=== PATIENT | female | born 1950 ===

== ENCOUNTER 2017-07-29 09:23 | Observation (INO) | payer SELFPAY ==
[2017-07-29 09:57] LABS: #Basophils 0.2 thou/uL (0.0-0.2); #Eosinphils 0.5 thou/uL (0.0-0.7); #Lymphocytes 2.5 thou/uL (1.20-3.40); #Monocytes 0.4 thou/uL (0.11-0.59); %Basophils 1.8 % (0.0-1.0); %Eosinophils 5.7 % (0.0-10.0); %Lymphocytes 29.6 % (21.0-51.0); %Monocytes 4.9 % (0.0-10.0); Hemoglobin 13.2 g/dL (12.0-16.0); Mean Corpuscular HGB CONC 33.4 g/dL (32.0-36.0); Mean Corpuscular Hemoglobin 31.8 pg (27.0-31.0); Mean Corpuscular Volume 95.3 fl (81.0-99.0); Mean Platelet Volume 8.3 fL (7.4-10.4); Platelet Count 211 thou/uL (130-400); RBC Distribution Width 11.4 % (11.5-14.5); Red Blood Cell (RBC) Count 4.14 mill/uL (4.20-5.40); White Blood Cell (WBC) Count 8.6 thou/uL (4.8-10.8)
[2017-07-29 10:21] LABS: Troponin I Less than 0.010 ng/mL (< 0.028)
[2017-07-29 10:24] LABS: ALT (SGPT) 16 U/L (8-55); AST (SGOT) 14 U/L (5-34); Albumin 4.3 g/dL (3.4-4.8); Alkaline Phosphatase 41 U/L (40-150); Anion Gap 11 mmol/L (10-20); BUN (Urea Nitrogen) 12 mg/dL (9.8-20.1); Bilirubin, Total 0.6 mg/dL (0.2-1.2); CK (CPK) 73 U/L (29-168); Calc. Creatinine Clearance 0 mL/min (70-130); Carbon Dioxide 29 mmol/L (23-31); Chloride 104 mmol/L (98-107); Estimated GFR-MDRD 72; Globulin 2.6 g/dL (2.4-3.5); Glucose 124 mg/dL (80-115); Lipase 22 U/L (8-78); Potassium 3.7 mmol/L (3.5-5.1); Protein, Total 6.9 g/dL (6.0-8.3); Sodium 140 mmol/L (136-145)
--- NOTE | 2017-07-29 10:37 | RAD ---
CHEST ONE VIEW: History: Chest pain Comparison: None FINDINGS: Lungs are clear. No pneumothorax or effusion. Cardiac silhouette and mediastinal contours are within normal limits. No acute osseous abnormality. Dense calcifications of arch of the aorta. IMPRESSION: No acute intrathoracic abnormality. POS: [facility]
--- NOTE | 2017-07-29 12:43 | CT ---
CTA OF THE THORAX UTILIZING IV CONTRAST AND PE PROTOCOL AND 3D REFORMATTED IMAGING: INDICATION: History of shortness of breath and palpitations that started 1 week ago but worsened this morning. FINDINGS: No central or segmental pulmonary embolus is evident. No confluent airspace opacity, pleural effusion, or pneumothorax is evident. There are areas of subsegmental atelectasis within the lingula. There is mild vascular calcification involving the thoracic aorta. No lymphadenopathy is seen within the mediastinal, hilar, or axillary regions. The upper abdomen is unremarkable for acute abnormality. No acute osseous abnormality is evident. There is scattered degenerative and osteoarthritic change. IMPRESSION: No central or segmental pulmonary embolus. POS: [facility]
[2017-07-29] MEDS ORDERED: ISOVUE-370 76%-LOCM 1 ML ONE (12:47)
--- NOTE | 2017-07-29 13:21 | HP ---
PRIMARY CARE PHYSICIAN: [facility] call admission. REASON FOR ADMISSION: Dyspnea on exertion, palpitation on exertion. HISTORY OF PRESENT ILLNESS: A 67-year-old female who is originally from [place]. She is visiting here since she is in [facility]. She is experiencing dyspnea on exertion. Patient reports that she is able to w alk flat without any problem almost 1 hour, but whenever she climbs stairs, then she feels shortness of breath or palpitations. This is going on for about last couple of weeks, but last few days she is getting worse. She denies any lower extremity edema. She denies any orthopnea or PND. She denies any syncope. She denies any chest pain, but she feels shortness of breath. Patient is unable to spe ak in [place]ic, but her daughter who is fluent in [place]ic helped to get history from her. Patient reports that before coming from [place] to [facility], she is on currently visitor visa. She had cardi ac testing done in her home country including cardiac catheterization and echocardiography and report is available to her and that was normal. Patient's daughter reports that lately she used to get more stress and that she is thinking that stre ss has contributed to her current presentation. The patient is taking all her medication. She denies any fever or chills, flu-like illness. She den ies any cough. She denies any UTI symptoms. She denies any constipation, diarrhea, melena or hemato chezia. In the emergency room, patient had CT angiography which was negative for pulmonary embolism and routi ne blood tests including electrocardiogram is unremarkable. At this point, patient's family member w anted to rule out cardiac etiology and that is why we are admitting for observation. ALLERGIES: No known drug allergies. CURRENT HOME MEDICATIONS: Toprol-XL 47.5 mg p.o. daily, metformin 500 mg p.o. daily, losartan 25 mg p.o. daily, Synthroid 100 mcg p.o. daily, Dyrenium 50 mg p.o. daily. REVIEW OF SYSTEMS: The following complete review of systems was negative, unless otherwise mentioned in the HPI or below: Constitutional: Weight loss or gain, ability to conduct usual activities. Skin: Rash, itching. Eyes: Double vision, pain. ENT/Mouth: Nose bleeding, neck stiffness, pain, tenderness. Cardiovascular: Palpitations, dyspnea on exertion, orthopnea. Respiratory: Shortness of breath, wheezing, cough, hemoptysis, fever or night sweats. Gastrointestinal: Poor appetite, abdominal pain, heartburn, nausea, vomiting, constipation, or diarr hea. Genitourinary: Urgency, frequency, dysuria, nocturia. Musculoskeletal: Pain, swelling. Neurologic/Psychiatric: Anxiety, depression. Allergy/Immunologic: Skin rash, bleeding tendency. Please see my HPI for pertinent positive and negative. All other review of systems reviewed and nega tive except as mentioned in the HPI. PAST MEDICAL HISTORY: Diabetes type 2, hypertension, dyslipidemia. PAST SURGICAL HISTORY: x3, thyroidectomy. PAST PSYCHIATRIC HISTORY: Reviewed and negative. SOCIAL HISTORY: Patient is originally from [place]. She lives currently with her daughter. No history of tobacco, alcohol or illicit drug abuse. FAMILY HISTORY: No strong family history of premature coronary artery disease, stroke or cancer. EMERGENCY ROOM COURSE: Reviewed. PHYSICAL EXAMINATION: VITAL SIGNS: On arrival, blood pressure 157/85, pulse 60, respiratory rate 18, temperature 98.6, sat uration 98% on room air, weight 60.7 kilograms. GENERAL: Patient is currently alert, oriented, no acute distress. HEAD: Normocephalic, atraumatic. EYES: Pupils round, reactive to light. Extraocular muscles intact. ENT: Oropharynx within normal limits. Moist mucous membranes. No oral lesions. No pharyngeal eryt usman, no exudates. NECK: Supple, no JVD, no thyromegaly, no carotid bruit, no jugular venous distention. LUNGS: Clear to auscultation without any rhonchi or rales. No accessory muscles of respiration in u se. CARDIAC: S1, S2 regular. No murmur, no gallop, no rub. ABDOMEN: Soft, bowel sounds present, nontender, nondistended. No organomegaly, no mass, no suprapub ic tenderness. BACK: Examination unremarkable, no CVA tenderness. EXTREMITIES: Upper extremity passive movements of all joints are normal. Lower extremity, trace low er extremity edema noted. Good peripheral pulsation, no calf tenderness. SKIN: No skin rash. HEMATOLOGICAL SYSTEM: No lymphadenopathy. PSYCHIATRIC: Normal affect. NEUROLOGIC: Nonfocal examination. The patient moves all 4 limbs. Plantar bilateral flexor. IMAGING DATA SIGNIFICANT LABORATORY DATA: 1. EKG showing sinus rhythm. 2. Chest x-ray based on my review, no acute cardiopulmonary process. 3. CT angio, no evidence of pulmonary embolism. 4. CBC: WBC 8.6, hemoglobin 13.2, platelets 211. Lipase 22, CK 73. 5. BMP: Sodium 140, potassium 3.7, chloride 104, carbon dioxide 29, BUN 12, creatinine 0.80, calciu m 9.0, glucose 124. 6. LFT: Protein 6.9, albumin 4.3, AST 14, ALT 16, and alkaline phosphatase 41. 7. CK-MB 1.0, troponin I is less than 0.010, BNP less than 10, D-dimer 0.169. ASSESSMENT AND PLAN/IMPRESSION: 1. Dyspnea on exertion as well as palpitations on exertion. Currently, EKG is within normal limits. BNP is normal, so unlikely to be congestive heart failure. Her D-dimer is elevated, but CT angio i s negative for PE and dyspnea. Thromboembolic disorder is also ruled out. Considering angina equiva lent, we will keep this patient in the hospital for observation and we will do stress test for diagno stic reason. Meanwhile, we will monitor on telemetry floor. Do serial cardiac enzymes, check lipid profile tomorrow morning for risk stratification and continue aspirin 325 mg p.o. daily. We will hol d on Toprol-XL because of stress test. Patient already had echocardiography done in her home country , which appears to be completely normal with normal ejection fraction. 2. Diabetes type 2. Hold metformin because of CT angio for 48 hours and we will continue insulin as per sliding scale per protocol. Diabetic diet will be given. 3. Hypertension. Continue losartan 25 mg p.o. daily. 4. Hypothyroidism. Continue Synthroid 100 mcg p.o. daily. 5. Deep venous thrombosis prophylaxis not needed because we are expecting discharge in 24 hours. 6. Gastrointestinal prophylaxis, Pepcid 20 mg p.o. b.i.d. 7. Code status: The patient is FULL CODE. Patient's daughter is surrogate decision maker. Disposition plan based on stress test result. Plan of care discussed with the patient and family mem atilio at bedside in the emergency room.
[2017-07-29 13:37] LABS: Troponin I 0.012 ng/mL (< 0.028)
[2017-07-29] MEDS ORDERED: Artificial Tears 18 DROP/0.9 ML EA EYE PRN (14:02)
[2017-07-29] MEDS ORDERED: hydrALAZINE 20 MG/ML VIAL SLOW IVP PRN (14:02)
[2017-07-29] MEDS ORDERED: Dextrose 50% Abboject 50 ML SYRINGE SLOW IVP PRN (14:02)
[2017-07-29] MEDS ORDERED: Ondansetron ODT 4 MG TAB PO PRN (14:02)
[2017-07-29] MEDS ORDERED: Eucerin (Mineral Oil/Petrolatum,White) 30 gm Jar TOP PRN (14:02)
[2017-07-29] MEDS ORDERED: Acetaminophen 325 MG TAB PO PRN (14:02)
[2017-07-29] MEDS ORDERED: Loratadine 10 MG TAB PO PRN (14:02)
[2017-07-29] MEDS ORDERED: Zolpidem Tartrate 5 MG TAB PO PRN (14:02)
[2017-07-29] MEDS ORDERED: Loperamide HCl 2 MG CAP PO PRN (14:02)
[2017-07-29] MEDS ORDERED: Milk Of Magnesia 30 ML UDCUP PO PRN (14:02)
[2017-07-29] MEDS ORDERED: Ondansetron HCl/PF 4 MG/2 ML Vial IVP PRN (14:02)
[2017-07-29] MEDS ORDERED: Nitroglycerin 0.4 MG TAB (25 Tab Bottle) SL PRN (14:02)
[2017-07-29] MEDS ORDERED: Mag-Al 1200 mg/1200 mg/30 ML UDCUP PO PRN (14:02)
[2017-07-29] MEDS ORDERED: Sodium Chloride 0.65% Nasal 44 ML BOT EA NARE PRN (14:02)
[2017-07-29] MEDS ORDERED: Diabetic Tussin 200 MG/10 ML UDCUP PO PRN (14:02)
[2017-07-29] MEDS ORDERED: Dextrose 5% in Water 1,000 ML IV PRN (14:02)
[2017-07-29] MEDS ORDERED: HYDROcodone/Acetaminophen 5/325 mg Tablet PO PRN (14:02)
[2017-07-29] MEDS ORDERED: HumaLOG 300 UNITS/3 ML VIAL SC PRN ×2 (14:02)
[2017-07-29] MEDS ORDERED: Chloraseptic Spray 180 ml Bottle PO PRN (14:02)
[2017-07-29] MEDS ORDERED: Senokot 8.6 MG TAB PO PRN (14:02)
[2017-07-29 16:48] LABS: Troponin I Less than 0.010 ng/mL (< 0.028)
[2017-07-29] MEDS: Famotidine 20 MG TAB PO SCH (20:40)
[2017-07-30] MEDS: Famotidine 20 MG TAB PO SCH (07:44)
[2017-07-30] MEDS ORDERED: Aspirin 325 MG TAB PO SCH (09:00)
--- NOTE | 2017-07-30 09:57 | PDOC.PN ---
- Subjective Encounter Start Date: 07/30/17 Encounter Start Time: 07:20 -: old records requested/rev Patient seen and examined. No new complaints. No overnight events - Objective Resuscitation Status: Resuscitation Status FULL:Full Resuscitation MAR Reviewed: Yes Vital Signs & Weight: Vital Signs (12 hours) Temp Pulse Resp BP Pulse Ox 07/30/17 07:41 97.6 F 54 L 18 07/30/17 07:40 98.2 F 57 L 16 128/70 97 07/30/17 04:28 97.6 F 54 L 18 134/60 95 Weight Weight 136 lb 6.4 oz I&O: 07/29/17 07/30/17 07/31/17 06:59 06:59 06:59 Intake Total 1230 Output Total 1900 Balance -670 Result Diagrams: 07/29/17 09:45 07/29/17 09:45 Additional Labs: Accuchecks 07/30/17 07/29/17 07/29/17 04:31 20:44 17:29 POC Glucose 116 H 135 H 215 H EKG Reviewed by me: Yes (nsr) Phys Exam - Physical Examination Constitutional: NAD HEENT: PERRLA, moist MMs, sclera anicteric Neck: no JVD, supple Respiratory: no wheezing, no rales, no rhonchi Cardiovascular: RRR, no significant murmur, no rub Gastrointestinal: soft, non-tender, no distention, positive bowel sounds Musculoskeletal: no edema, pulses present Neurological: non-focal, normal sensation, moves all 4 limbs Lymphatic: no nodes Psychiatric: normal affect, A&O x 3 Skin: no rash, normal turgor Dx/Plan (1) RANGEL (dyspnea on exertion) Code(s): R06.09 - OTHER FORMS OF DYSPNEA Status: Acute (2) Palpitation Code(s): R00.2 - PALPITATIONS Status: Acute (3) Diabetes type 2, controlled Code(s): E11.9 - TYPE 2 DIABETES MELLITUS WITHOUT COMPLICATIONS Status: Chronic (4) Dyslipidemia Code(s): E78.5 - HYPERLIPIDEMIA, UNSPECIFIED Status: Chronic (5) Hypothyroidism Code(s): E03.9 - HYPOTHYROIDISM, UNSPECIFIED Status: Chronic - Plan cont current plan of care, plan discussed w/ family * medication reviewed as below * symptomatic treatment * today stress test * if negative, will dc later today * will send all meds to her pharmacy. Review of Systems - Review of Systems Eyes: negative: Pain, Vision Change, Conjunctivae Inflammation, Eyelid Inflammation, Redness, Other ENT: negative: Ear Pain, Ear Discharge, Nose Pain, Nose Discharge, Nose Congestion, Mouth Pain, Mouth Swelling, Throat Pain, Throat Swelling, Other Respiratory: negative: Cough, Dry, Shortness of Breath, Hemoptysis, SOB with Excertion, Pleuritic Pain, Sputum, Wheezing Cardiovascular: negative: chest pain, palpitations, orthopnea, paroxysmal nocturnal dyspnea, edema, light headedness, other Gastrointestinal: negative: Nausea, Vomiting, Abdominal Pain, Diarrhea, Constipation, Melena, Hematochezia, Other Genitourinary: negative: Dysuria, Frequency, Incontinence, Hematuria, Retention , Other Musculoskeletal: negative: Neck Pain, Shoulder Pain, Arm Pain, Back Pain, Hand Pain, Leg Pain, Foot Pain, Other - Medications/Allergies Allergies/Adverse Reactions: Allergies Allergy/AdvReac Type Severity Reaction Status Date / Time No Known Allergies Allergy Unverified 07/29/17 14:02 Medications: Current Medications Acetaminophen (Tylenol) 650 mg PO Q4H PRN PRN Reason: Headache/Fever or Pain Hydrocodone Bitart/Acetaminophen ([place] 5/325) 1 tab PO Q4H PRN PRN Reason: Moderate Pain (4-6) Al Hydroxide/Mg Hydroxide (Maalox) 30 ml PO Q6H PRN PRN Reason: Heartburn or Indigestion Artificial Tears (Tears Naturale) 0 drop EA EYE PRN PRN PRN Reason: Dry Eyes Aspirin (Aspirin) 325 mg PO DAILY [facility] Last Admin: 07/30/17 07:44 Dose: Not Given Dextrose/Water (Dextrose 50%) 25 gm SLOW IVP PRN PRN PRN Reason: Hypoglycemia Famotidine (Pepcid) 20 mg PO BID [facility] Last Admin: 07/30/17 07:44 Dose: Not Given Glucagon (Glucagon) 1 mg IM PRN PRN PRN Reason: Hypoglycemia Guaifenesin (Robitussin Sf) 200 mg PO Q4H PRN PRN Reason: Cough Hydralazine HCl (Apresoline) 10 mg SLOW IVP Q4H PRN PRN Reason: Systolic BP > 180 Dextrose/Water (D5w) 1,000 mls @ 0 mls/hr IV .Q0M PRN; As Directed PRN Reason: Hypoglycemia Insulin Human Lispro (Humalog) 0 units SC .MODERATE SLIDING SC PRN PRN Reason: Moderate Correctional Scale Insulin Human Lispro (Humalog) 0 units SC .BEDTIME SLIDING SC PRN PRN Reason: Bedtime Correctional Scale Loperamide HCl (Imodium) 2 mg PO PRN PRN PRN Reason: Diarrhea/Loose Stools Loratadine (Claritin) 10 mg PO DAILYPRN PRN PRN Reason: Sinus Symptoms Magnesium Hydroxide (Milk Of Magnesium) 30 ml PO DAILYPRN PRN PRN Reason: Constipation Mineral Oil/White Petrolatum (Eucerin Cream) 0 gm TOP BIDPRN PRN PRN Reason: Dry Skin Nitroglycerin (Nitrostat) 0.4 mg SL Q5MIN PRN PRN Reason: Chest Pain Ondansetron HCl (Zofran Odt) 4 mg PO Q6H PRN PRN Reason: Nausea/Vomiting Ondansetron HCl (Zofran) 4 mg IVP Q6H PRN PRN Reason: Nausea/Vomiting Phenol (Chloraseptic [place] 180 Ml Bot) 0 ml PO PRN PRN PRN Reason: Sore Throat Senna (Senokot) 2 tab PO HSPRN PRN PRN Reason: Constipation Sodium Chloride ([place] Nasal [place] 0.65%) 0 ml EA NARE QIDPRN PRN PRN Reason: Nasal Congestion Zolpidem Tartrate (Ambien) 5 mg PO HSPRN PRN PRN Reason: Insomnia
--- NOTE | 2017-07-30 11:05 | DIS ---
DATE OF ADMISSION: 07/29/2017 DATE OF DISCHARGE: 07/30/2017 PRIMARY CARE PHYSICIAN: [facility] call admission. DISCHARGE DISPOSITION: Home. PRIMARY DISCHARGE DIAGNOSES: Dyspnea on exertion and palpitations, ruled out acute coronary syndrome. SECONDARY DISCHARGE DIAGNOSES: Diabetes type 2, dyslipidemia, hypertension, and hypothyroidism. PRIMARY PROCEDURE/OPERATION: None. RADIOLOGICAL INVESTIGATION: Chest x-ray normal. CT angio negative for PE. Stress test result is pending. SIGNIFICANT LABORATORY DATA: WBC 8.6, hemoglobin 13.2, platelet 211. D-dimer 0.69. Cardiac enzymes negative. LDL 97. Lipase 22. BMP and LFT normal. DISCHARGE MEDICATIONS: Aspirin 81 mg p.o. daily, Lipitor 10 mg p.o. at bedtime , Synthroid 100 mcg p.o. daily, losartan 25 mg p.o. b.i.d., metformin 500 mg p.o. b.i.d., Toprol-XL 50 mg p.o. daily, and triamterene 50 mg p.o. daily. CONTRAINDICATIONS: None. CODE STATUS: FULL CODE. INPATIENT CONSULTANTS: None. ALLERGIES: No known drug allergy. DISCHARGE PLAN: Post hospital, patient will follow up with primary care physician as instructed. HOSPITAL COURSE: A 67-year-old female with above-mentioned medical problem who was experiencing dyspnea on exertion and palpitation on exertion for the last couple of weeks. Patient was also having a lot of stress lately. She is visiting from [place]. This patient had full workup done including cardiac catheterization and echocardiography in [place] before coming to [facility]. Family member was worried about her cardiac etiology and that is why we observed this patient in the hospital. We did serial cardiac enzyme and that were negative. Her BNP was normal. Her telemetry remained unremarkable. She had elevated D-dimer that is why CT angio was done which was negative for PE. We are doing stress test today and if stress test is negative, then we will consider discharging her home later on today. The patient is seen and examined at bedside today. Plan of care discussed with the family member. All medications she is going to run out in few weeks, that is why we have sent 3 months refill to pharmacy as well. The patient is seen and examined at bedside today. Stress test resulted no reversible ischemia. Notified result to patient and family. JULIETA
[2017-07-30 12:43] VITALS: BP 115/65; TEMP 98.9
--- NOTE | 2017-07-30 14:33 | NM ---
NUCLEAR MEDICINE MYOCARDIAL PERFUSION SCAN: DATE: 07/30/17. HISTORY: Dyspnea on exertion. TECHNIQUE: SPECT imaging of the left ventricular myocardium was obtained during rest and stress following the in travenous administration of 9.0 and 30.0 mCi Technetium 99m labeled sestamibi. FINDINGS: There are fixed defects involving the inferior wall/lateral wall of the left ventricular myocardium a s well as the septum in the region of the apex. This is more conspicuous on rest than on stress imag ing suggesting areas of attenuation and/or prior infarction. No discrete reversible defect is seen. Wall motion appears normal. EDV measures 55 mL, ESV measures 10 mL, and left ventricular ejection f raction is 81%. TID is 1.1. IMPRESSION: No evidence for reversible ischemia. Areas of fixed defect as described above. POS: [facility]
[2017-07-30] MEDS ORDERED: ADENOSINE 60 MG/20 ML VIAL ONE (15:52)
--- NOTE | 2017-08-02 15:33 | EKG ---
Test Reason : Blood Pressure : / mmHG Vent. Rate : 061 BPM Atrial Rate : 061 BPM P-R Int : 168 ms QRS Dur : 090 ms QT Int : 412 ms P-R-T Axes : 016 -20 073 degrees QTc Int : 414 ms Normal sinus rhythm Possible Left atrial enlargement Left ventricular hypertrophy Nonspecific ST and T wave abnormality Abnormal ECG Confirmed by PHOENIX MALCOLM ([id number]), sports editor RADHA MORTON ([id number]) on 08/02/2017 3:33:20 PM Referred By: Confirmed By:PHOENIX MALCOLM
== END 2017-07-30 14:19 | disposition home or self-care (01) ==
LOC: ERS 09:23 → 2SW 12:45
PROVIDERS: ADMIT Internal Medicine; ATTEND Internal Medicine
DX: R06.09 Other forms of dyspnea (principal); R00.2 Palpitations; E11.9 Type 2 diabetes mellitus without complications; E78.5 Hyperlipidemia, unspecified; E89.0 Postprocedural hypothyroidism; I10 Essential (primary) hypertension; Z79.84 Long term (current) use of oral hypoglycemic drugs; Z79.899 Other long term (current) drug therapy; Z98.891 History of uterine scar from previous surgery
CPT/HCPCS: 36415; 36416; 71045; 71275; 78452; 80053; 80061; 82550; 82553; 83690; 83880; 84484; 85025; 85379; 93005; 93017; 94760; A9500; G0378; J0153